=== PATIENT | female | born 1990 ===

== ENCOUNTER 2019-08-23 14:10 | Inpatient (IN) | payer BC ==
[2019-08-23] MEDS ORDERED: Nalbuphine 10 MG/1 ML Vial IVPUSH PRN (14:17)
[2019-08-23] MEDS ORDERED: Lidocaine 1% 50 ML MDV INJECT PRN (14:17)
[2019-08-23] MEDS ORDERED: Tranexamic Acid 1,000 MG in Sodium Chloride 0.9% 100 ML IV PRN (14:17)
[2019-08-23] MEDS ORDERED: Carboprost Tromethamine 250 MCG/1 ML Amp IM PRN (14:17)
[2019-08-23] MEDS ORDERED: Ondansetron 4 MG/2 ML SDV IVPUSH PRN (14:17)
[2019-08-23] MEDS ORDERED: Water For Irrigation,Sterile 1,000 ML Container IRR PRN (14:17)
[2019-08-23] MEDS ORDERED: Misoprostol 200 MCG Tab PO PRN (14:17)
[2019-08-23] MEDS ORDERED: Methylergonovine 0.2 MG/1 ML Amp IM PRN (14:17)
[2019-08-23] MEDS ORDERED: Ampicillin 2 GM in Sodium Chloride 0.9% 100 ML IV ONE (14:17)
[2019-08-23] MEDS ORDERED: Terbutaline 1 MG/ML SDV SUBCUT PRN (14:17)
[2019-08-23] MEDS ORDERED: Sodium Chloride 0.9% 10 ML SDV IV PRN (14:17)
[2019-08-23] MEDS ORDERED: Misoprostol 25 MCG (1/4 of 100 MCG) Tab VAG PRN (14:17)
[2019-08-23] MEDS ORDERED: Butorphanol 1 MG/ML SDV IVPUSH PRN (14:17)
[2019-08-23] MEDS ORDERED: Sodium Chloride 0.9% 2.5 ML Syringe FLUSH PRN (14:17)
[2019-08-23] MEDS ORDERED: Sodium Chloride 0.9% 10 ML Syringe FLUSH PRN (14:17)
[2019-08-23] MEDS ORDERED: Oxytocin/0.9 % Sodium Chloride 30 UNIT/500 ML BAG IV SCH ×2 (14:30)
[2019-08-23] MEDS: Lactated Ringers 1,000 ML IV SCH (15:44)
[2019-08-23 18:03] LABS: BLOOD UREA NITROGEN,BUN 7 mg/dL (7.0-18.0); CARBON DIOXIDE,CO2 22.3 mmol/L (21.0-32.0); CHLORIDE,CL 104 mmol/L (98-107); GLUCOSE RANDOM 87 mg/dL (74-106); POTASSIUM,K 4.2 mmol/L (3.5-5.1); SODIUM,NA 137 mmol/L (136-145)
[2019-08-23] MEDS: Misoprostol 25 MCG (1/4 of 100 MCG) Tab VAG PRN (19:56)
[2019-08-23] MEDS: Ampicillin 1 GM in Sodium Chloride 0.9% 50 ML IV SCH (20:10)
[2019-08-24] MEDS: Ampicillin 1 GM in Sodium Chloride 0.9% 50 ML IV SCH ×3 (00:16→08:17)
[2019-08-24] MEDS: Misoprostol 25 MCG (1/4 of 100 MCG) Tab VAG PRN (00:17)
[2019-08-24] MEDS ORDERED: Ropivacaine 0.2% PF 2 MG/ML 20 ML SDV ONE (07:32)
[2019-08-24] MEDS ORDERED: Ropivacaine HCl/PF 100 ML ONE (07:32)
[2019-08-24] MEDS ORDERED: fentaNYL 100 MCG/2 ML SDV ONE (07:32)
[2019-08-24] MEDS: Lactated Ringers 1,000 ML IV SCH ×2 (08:17→09:48)
--- NOTE | 2019-08-24 08:25 | PCM.PREANE ---
Preanesthetic Assessment - Procedure Proposed Procedure: DAYLIN - Anesthesia/Transfusion/Family Hx Anesthesia History: Prior Anesthesia Without Reaction Family History of Anesthesia Reaction: No Transfusion History: No Prior Transfusion(s) Intubation History: Unknown - Review of Systems General: No Symptoms Pulmonary: No Symptoms Cardiovascular: No Symptoms Gastrointestinal: No Symptoms Neurological: No Symptoms Other: Reports: Anxiety (Painful epidural last time. Tender spot in back ever since.) - Physical Assessment NPO Status Date: 08/24/19 NPO Status Time: 07:30 (Clear liquids) Height: 1.75 m Weight: 114.305 kg ASA Class: 2 Mental Status: Alert & Oriented x3 Airway Class: Mallampati = 1 Dentition: Reports: Normal Dentition Thyro-Mental Finger Breadths: 3 Mouth Opening Finger Breadths: 3 ROM/Head Extension: Full Lungs: Clear to Auscultation Cardiovascular: Regular Rate - Lab Values: Laboratory Last Values WBC 8.90 K/uL (4.0-11.0) 08/23/19 15:34 RBC 4.27 M/uL (4.30-5.90) L 08/23/19 15:34 Hgb 11.3 g/dL (12.0-16.0) L 08/23/19 15:34 Hct 35.4 % (36.0-46.0) L 08/23/19 15:34 MCV 82.9 fL (80.0-98.0) 08/23/19 15:34 MCH 26.5 pg (27.0-32.0) L 08/23/19 15:34 MCHC 31.9 g/dL (31.0-37.0) 08/23/19 15:34 RDW Std Deviation 41.5 fl (28.0-62.0) 08/23/19 15:34 RDW Coeff of Zeyad 14 % (11.0-15.0) 08/23/19 15:34 Plt Count 208 K/uL (150-400) 08/23/19 15:34 MPV 11.20 fL (7.40-12.00) 08/23/19 15:34 Nucleated RBC % 0.0 /100WBC 08/23/19 15:34 Nucleated RBCs # 0 K/uL 08/23/19 15:34 Sodium 137 mmol/L (136-145) 08/23/19 15:34 Potassium 4.2 mmol/L (3.5-5.1) 08/23/19 15:34 Chloride 104 mmol/L (98-107) 08/23/19 15:34 Carbon Dioxide 22.3 mmol/L (21.0-32.0) 08/23/19 15:34 BUN 7 mg/dL (7.0-18.0) 08/23/19 15:34 Creatinine 0.6 mg/dL (0.6-1.0) 08/23/19 15:34 Est Cr Clr Drug Dosing 145.88 mL/min 08/23/19 15:34 Estimated GFR (MDRD) > 60.0 ml/min 08/23/19 15:34 Glucose 87 mg/dL (74-106) 08/23/19 15:34 Uric Acid 3.9 mg/dL (2.6-7.2) 08/23/19 15:34 Calcium 8.8 mg/dL (8.5-10.1) 08/23/19 15:34 Total Bilirubin 0.7 mg/dL (0.2-1.0) 08/23/19 15:34 AST 19 IU/L (15-37) 08/23/19 15:34 ALT 17 IU/L (14-63) 08/23/19 15:34 Alkaline Phosphatase 178 U/L (46-116) H 08/23/19 15:34 Total Protein 6.7 g/dL (6.4-8.2) 08/23/19 15:34 Albumin 2.7 g/dL (3.4-5.0) L 08/23/19 15:34 Globulin 4.0 g/dL (2.6-4.0) 08/23/19 15:34 Albumin/Globulin Ratio 0.7 (0.9-1.6) L 08/23/19 15:34 Ur Random Creatinine 79.3 mg/dL 08/23/19 18:12 U Random Total Protein 16.5 mg/dL (<11.9) H 08/23/19 18:12 Protein/Creatinin Ratio 0.2 08/23/19 18:12 Blood Type A POSITIVE 08/23/19 15:34 Antibody Screen NEGATIVE 08/23/19 15:34 - Allergies Allergies/Adverse Reactions: Allergies Allergy/AdvReac Type Severity Reaction Status Date / Time No Known Allergies Allergy Verified 08/23/19 15:16 - Blood Blood Available: No - Anesthesia Plan Pre-Op Medication Ordered: None - Acknowledgements Anesthesia Type Planned: Epidural Pt an Appropriate Candidate for the Planned Anesthesia: Yes Alternatives and Risks of Anesthesia Discussed w Pt/Guardian: Yes Pt/Guardian Understands and Agrees with Anesthesia Plan: Yes Additional Comments: Discussed. ? answered. Permit signed. PreAnesthesia Questionnaire [employer] History: Reports: - Infectious Disease History Infectious Disease History: Reports: Chicken Pox - Past Surgical History HEENT Surgical History: Reports: Oral Surgery Musculoskeletal Surgical History: Reports: Other (See Below) Other Musculoskeletal Surgeries/Procedures:: Left ACL reconstruction - SUBSTANCE USE Smoking Status *Q: Never Smoker Second Hand Smoke Exposure: No Recreational Drug Use History: No - CURRENT (IN HOUSE) MEDS Current Meds: Current Medications Butorphanol Tartrate (Stadol) 1 mg IVPUSH Q1H PRN PRN Reason: Pain Last Admin: 08/24/19 04:28 Dose: 1 mg Carboprost Tromethamine (Hemabate Ds) 250 mcg IM ASDIRECTED PRN PRN Reason: Post Hemorrhage Lactated Ringer's (Ringers, Lactated) 1,000 mls @ 150 mls/hr IV ASDIRECTED ENDER Last Admin: 08/24/19 08:17 Dose: 500 mls/hr Oxytocin/Sodium Chloride (Oxytocin 30 Unit/500 Ml-Ns) 30 unit in 500 mls @ 999 mls/hr IV TITRATE ENDER Oxytocin/Sodium Chloride (Oxytocin 30 Unit/500 Ml-Ns) 30 unit in 500 mls @ 2 mls/hr IV TITRATE ENDER; Protocol Last Titration: 08/24/19 07:47 Dose: 4 munits/min, 4 mls/hr Tranexamic Acid 1,000 mg/ (Sodium Chloride) 110 mls @ 660 mls/hr IV ONETIME PRN PRN Reason: Bleeding Ampicillin Sodium 1 gm/ Sodium (Chloride) 50 mls @ 100 mls/hr IV Q4H ENDER Last Admin: 08/24/19 08:17 Dose: 100 mls/hr Lidocaine HCl (Xylocaine 1%) 50 ml INJECT ONETIME PRN PRN Reason: Laceration repair Methylergonovine Maleate (Methergine) 0.2 mg IM ASDIRECTED PRN PRN Reason: Post Hemorrhage Misoprostol (Cytotec) 200 mcg PO ONETIME PRN PRN Reason: Post Hemorrhage Misoprostol (Cytotec) 25 mcg VAG ONETIME PRN PRN Reason: Cervical Ripening Last Admin: 08/23/19 15:50 Dose: 25 mcg Misoprostol (Cytotec) 25 mcg VAG Q4H PRN PRN Reason: Cervical Ripening Last Admin: 08/24/19 00:17 Dose: 25 mcg Nalbuphine HCl (Nubain) 10 mg IVPUSH Q1H PRN PRN Reason: Pain (severe 7-10) Ondansetron HCl (Zofran) 4 mg IVPUSH Q4H PRN PRN Reason: Nausea/Vomiting Sodium Chloride (Saline Flush) 10 ml FLUSH ASDIRECTED PRN PRN Reason: Keep Vein Open Sodium Chloride (Saline Flush) 2.5 ml FLUSH ASDIRECTED PRN PRN Reason: Keep Vein Open Sodium Chloride (Normal Saline) 10 ml IV ASDIRECTED PRN PRN Reason: IV Use Sterile Water (Sterile Water For Irrigation) 1,000 ml IRR ASDIRECTED PRN PRN Reason: delivery Terbutaline Sulfate (Brethine) 0.25 mg SUBCUT ASDIRECTED PRN PRN Reason: Tacysystole Discontinued Medications Fentanyl (Sublimaze) Confirm Administered Dose 100 mcg .ROUTE .STK-MED ONE Stop: 08/24/19 07:33 Ampicillin Sodium 2 gm/ Sodium (Chloride) 100 mls @ 200 mls/hr IV ONETIME ONE Stop: 08/23/19 14:46 Last Admin: 08/23/19 15:45 Dose: 200 mls/hr Ropivacaine (Naropin 0.2%) Confirm Administered Dose 100 mls @ as directed .ROUTE .STK-MED ONE Stop: 08/24/19 07:33 Ropivacaine (Naropin 0.2%) Confirm Administered Dose 20 ml .ROUTE .STK-MED ONE Stop: 08/24/19 07:33
[2019-08-24] MEDS ORDERED: Sodium Chloride 0.9% 20 ML ONE (08:38)
[2019-08-24] MEDS ORDERED: ePHEDrine 50 MG/ML SDV ONE (08:38)
[2019-08-24] MEDS ORDERED: Benzocaine/Menthol 20%-0.5% Spray 78 GM Cannister TOP PRN (12:32)
[2019-08-24] MEDS ORDERED: Bisacodyl 10 MG Supp RECTAL PRN (12:32)
[2019-08-24] MEDS ORDERED: Lanolin 100% Cream 7 GM Tube TOP PRN (12:32)
[2019-08-24] MEDS ORDERED: Docusate Sodium 100 MG Cap PO PRN (12:32)
[2019-08-24] MEDS ORDERED: Ibuprofen 400 MG Tab PO PRN (12:32)
[2019-08-24] MEDS ORDERED: Aluminum Hydroxide/Magnesium Hydroxide/Simethicone Susp 30 ML Cup PO PRN (12:32)
[2019-08-24] MEDS ORDERED: Witch Hazel Medicated Pads 40/Jar TOP PRN (12:32)
[2019-08-24] MEDS ORDERED: Acetaminophen 500 MG Tab PO PRN ×2 (12:32)
[2019-08-24] MEDS ORDERED: oxyCODONE 5 MG Tab PO PRN (12:32)
--- NOTE | 2019-08-24 12:38 | PCM.OPNOTE ---
- General Post-Op/Procedure Note Date of Surgery/Procedure: 08/24/19 Operative Procedure(s): /IP Findings: Viable male APGARs 8, 9 weight pending. Spontaneous delivery intact placenta with 3V cord Pre Op Diagnosis: 41/1 week IUP. Induction for past due PG Post-Op Diagnosis: Same Anesthesia Technique: Epidural Primary Surgeon: Karen Romano EBL in mLs: 200 Complications: none known Condition: Good Free Text/Narrative:: Dictation [id number]
--- NOTE | 2019-08-24 16:14 | OR ---
SURGEON: Karen Romano M.D. DATE OF PROCEDURE: 08/24/2019 PREOPERATIVE DIAGNOSES: 1. A 41-1/7 weeks' intrauterine . 2. Induction of labor for past due . 3. Group B beta strep positive. POSTOPERATIVE DIAGNOSES: 1. A 41-1/7 weeks' intrauterine . 2. Induction of labor for past due . 3. Group B beta strep positive. PROCEDURE: Spontaneous vaginal delivery, intact perineum. PRIMARY SURGEON: Karen Romano MD ANESTHESIA: Epidural. ESTIMATED BLOOD LOSS: 200 mL. COMPLICATIONS: None known. FINDINGS: Viable male. score of 8 at one minute and 9 at five minutes. Weight is pending. Spontaneous delivery, intact placenta, 3-vessel cord. DISPOSITION: Infant to nursery, mom in LDRP. PROCEDURE DETAILS: Josef is a 29-year-old, G2, P1, at 41 weeks' gestational age, who presented on 08/23/2019 for scheduled induction of labor for past due . She received four doses of Cytotec. Category of heart tone in the 140s and then proceeded to Pitocin induction. She underwent amniotomy on the director of women's services of 08/24/2019 with clear fluid returned. IUPC was placed. The patient continued to progress and became more uncomfortable. Was found to be 3 cm and underwent a regional anesthesia in the form of epidural. I assumed care at 8 a.m. Shortly after 10 a.m., the patient was found to be complete, 100% effaced, minus 1 station. Therefore, continued to labor until +1 or +2 station and then began pushing efforts. The patient pushed to a +2 station. I was called for delivery. Upon my arrival, the patient was placed in modified dorsal lithotomy position, prepped and draped in usual aseptic manner. The patient was found to be right OT presentation, therefore, head was rotated to OA presentation. Continued with pushing efforts. heart tones remained in the 140s and was able to deliver 's head followed by anterior shoulder, posterior shoulder, and remainder of the body without difficulty. The infant's oropharynx and nares were bulb suctioned. Infant was handed off to his mother with attending nursing staff at the side. Cord arterial, cord venous, cord blood sampling was obtained after the cord was clamped x2 and cut. Light pressure was applied while the placenta was delivered spontaneously intact. Vigorous fundal uterine massage was then applied while 30 units of Pitocin was delivered in 500 mL of fluid. Upon inspection of cervix, vaginal sidewall, and perineum, these were found to be intact. Uterus remained firm. Hemostasis evident. Sponge count and instrument count were correct. The patient remained in LDRP, to nursery. JALEN / ADRIANO /[id number]
[2019-08-24] MEDS: Ibuprofen 800 MG Tab PO PRN (20:03)
[2019-08-25] MEDS: Ibuprofen 800 MG Tab PO PRN (08:10)
--- NOTE | 2019-08-25 11:07 | PCM.PNPP ---
- General Info Date of Service: 08/25/19 Functional Status: Reports: Pain Controlled, Tolerating Diet, Ambulating, Urinating - Review of Systems General: Denies: Fever, Weakness Pulmonary: Denies: Shortness of Breath Cardiovascular: Denies: Chest Pain, Palpitations, Lightheadedness Gastrointestinal: Denies: Abdominal Pain Genitourinary: Reports: No Symptoms Musculoskeletal: Reports: No Symptoms Skin: Reports: No Symptoms Neurological: Reports: No Symptoms Psychiatric: Reports: No Symptoms - General Info Date of Service: 08/25/19 - Patient Data Vital Signs - Most Recent: Last Vital Signs Temp 36.6 C 08/25/19 07:00 Pulse 60 08/25/19 07:00 Resp 18 08/25/19 07:00 BP 121/78 08/25/19 07:00 Pulse Ox 98 08/25/19 07:00 Weight - Most Recent: 114.305 kg Lab Results - Last 24 Hours: Laboratory Results - last 24 hr 08/24/19 08/25/19 Range/Units 12:34 06:25 Hgb 10.4 L (12.0-16.0) g/dL Hct 33.5 L (36.0-46.0) % Cord ABG pH 7.213 (7.18-7.38) Cord ABG Base Excess -6 (-10--2) Cord VBG pH 7.277 (7.25-7.45) Cord VBG Base Excess -7 (-10--2) Med Orders - Current: Current Medications Acetaminophen (Tylenol Extra Strength) 500 mg PO Q4H PRN PRN Reason: Pain Acetaminophen (Tylenol Extra Strength) 1,000 mg PO Q4H PRN PRN Reason: Pain Last Admin: 08/24/19 18:18 Dose: 1,000 mg Al Hydroxide/Mg Hydroxide (Mag-Al Plus) 30 ml PO Q8H PRN PRN Reason: Heartburn Benzocaine/Menthol (Dermoplast Pain Relief 20%-0.5% Theodore) 78 gm TOP ASDIRECTED PRN PRN Reason: Perineal Comfort Measure Bisacodyl (Dulcolax) 10 mg RECTAL ONETIME PRN PRN Reason: Constipation Butorphanol Tartrate (Stadol) 1 mg IVPUSH Q1H PRN PRN Reason: Pain Last Admin: 08/24/19 04:28 Dose: 1 mg Carboprost Tromethamine (Hemabate Ds) 250 mcg IM ASDIRECTED PRN PRN Reason: Post Hemorrhage Docusate Sodium (Colace) 100 mg PO BID PRN PRN Reason: Constipation Emollient Ointment (Lansinoh Hpa) 0 gm TOP ASDIRECTED PRN PRN Reason: Sore Nipples Lactated Ringer's (Ringers, Lactated) 1,000 mls @ 150 mls/hr IV ASDIRECTED ENDER Last Admin: 08/24/19 09:48 Dose: 150 mls/hr Oxytocin/Sodium Chloride (Oxytocin 30 Unit/500 Ml-Ns) 30 unit in 500 mls @ 999 mls/hr IV TITRATE ENDER Oxytocin/Sodium Chloride (Oxytocin 30 Unit/500 Ml-Ns) 30 unit in 500 mls @ 2 mls/hr IV TITRATE ENDER; Protocol Last Titration: 08/24/19 12:10 Dose: 999 munits/min, 999 mls/hr Tranexamic Acid 1,000 mg/ (Sodium Chloride) 110 mls @ 660 mls/hr IV ONETIME PRN PRN Reason: Bleeding Ibuprofen (Motrin) 400 mg PO Q4H PRN PRN Reason: Pain Ibuprofen (Motrin) 800 mg PO Q6H PRN PRN Reason: Pain Last Admin: 08/25/19 08:10 Dose: 800 mg Methylergonovine Maleate (Methergine) 0.2 mg IM ASDIRECTED PRN PRN Reason: Post Hemorrhage Nalbuphine HCl (Nubain) 10 mg IVPUSH Q1H PRN PRN Reason: Pain (severe 7-10) Ondansetron HCl (Zofran) 4 mg IVPUSH Q4H PRN PRN Reason: Nausea/Vomiting Oxycodone HCl (Oxycodone) 5 mg PO Q2H PRN PRN Reason: Pain Sodium Chloride (Saline Flush) 10 ml FLUSH ASDIRECTED PRN PRN Reason: Keep Vein Open Sodium Chloride (Saline Flush) 2.5 ml FLUSH ASDIRECTED PRN PRN Reason: Keep Vein Open Sodium Chloride (Normal Saline) 10 ml IV ASDIRECTED PRN PRN Reason: IV Use Sterile Water (Sterile Water For Irrigation) 1,000 ml IRR ASDIRECTED PRN PRN Reason: delivery Last Admin: 08/24/19 12:33 Dose: 1,000 ml [place] Leadia (Tucks) 1 pad TOP ASDIRECTED PRN PRN Reason: comfort care Discontinued Medications Ephedrine Sulfate (Ephedrine Sulfate) Confirm Administered Dose 100 mg .ROUTE .STK-MED ONE Stop: 08/24/19 08:39 Fentanyl (Sublimaze) Confirm Administered Dose 100 mcg .ROUTE .STK-MED ONE Stop: 08/24/19 07:33 Last Admin: 08/25/19 08:49 Dose: Not Given Ampicillin Sodium 2 gm/ Sodium (Chloride) 100 mls @ 200 mls/hr IV ONETIME ONE Stop: 08/23/19 14:46 Last Admin: 08/23/19 15:45 Dose: 200 mls/hr Ampicillin Sodium 1 gm/ Sodium (Chloride) 50 mls @ 100 mls/hr IV Q4H ENDER Last Admin: 08/24/19 08:17 Dose: 100 mls/hr Ropivacaine (Naropin 0.2%) Confirm Administered Dose 100 mls @ as directed .ROUTE .STK-MED ONE Stop: 08/24/19 07:33 Last Admin: 08/25/19 08:49 Dose: Not Given Sodium Chloride (Normal Saline) Confirm Administered Dose 20 mls @ as directed .ROUTE .STK-MED ONE Stop: 08/24/19 08:39 Lidocaine HCl (Xylocaine 1%) 50 ml INJECT ONETIME PRN PRN Reason: Laceration repair Misoprostol (Cytotec) 200 mcg PO ONETIME PRN PRN Reason: Post Hemorrhage Misoprostol (Cytotec) 25 mcg VAG ONETIME PRN PRN Reason: Cervical Ripening Last Admin: 08/23/19 15:50 Dose: 25 mcg Misoprostol (Cytotec) 25 mcg VAG Q4H PRN PRN Reason: Cervical Ripening Last Admin: 08/24/19 00:17 Dose: 25 mcg Ropivacaine (Naropin 0.2%) Confirm Administered Dose 20 ml .ROUTE .STK-MED ONE Stop: 08/24/19 07:33 Last Admin: 08/25/19 08:50 Dose: Not Given Terbutaline Sulfate (Brethine) 0.25 mg SUBCUT ASDIRECTED PRN PRN Reason: Tacysystole - Infant Interaction Support Person: Significant Other - Recovery Exam Fundal Tone: Firm Fundal Level: 1 Fingerbreadths Below Umbilicus Fundal Placement: Midline Lochia Amount: Scant Lochia Color: Rubra/Red Perineum Description: Intact, Minimal Bruising/Swelling Episiotomy/Laceration: Approximated Bladder Status: Voiding Urinary Elimination: Voided - Exam General: Alert, Oriented Lungs: Rub Cardiovascular: Regular Rate, Regular Rhythm GI/Abdominal Exam: Normal Bowel Sounds, Soft, Non-Tender Extremities: Pedal Edema (1+). No: Magdi's Sign Skin: Warm, Dry, Intact Neurological: No New Focal Deficit Psy/Mental Status: Alert, Normal Affect, Normal Mood - Problem List & Annotations (1) Vaginal delivery SNOMED Code(s): 759058764 Code(s): O80 - ENCOUNTER FOR FULL-TERM UNCOMPLICATED DELIVERY Status: Acute Current Visit: Yes - Problem List Review Problem List Initiated/Reviewed/Updated: Yes - My Orders Last 24 Hours: My Active Orders 08/24/19 12:32 Patient Status [ADT] Routine May Shower [RC] ASDIRECTED Notify Provider Vital Signs [RC] ASDIRECTED Up ad Kriss [RC] ASDIRECTED Vital Signs [RC] PER UNIT ROUTINE Acetaminophen [Tylenol Extra Strength] 1,000 mg PO Q4H PRN Acetaminophen [Tylenol Extra Strength] 500 mg PO Q4H PRN Alum Hydrox/Mag Hydrox/Simeth [Mag-Al Plus] 30 ml PO Q8H PRN Benzocaine/Menthol [Dermoplast Pain Relief 20%-0.5% Theodore] 78 gm TOP ASDIRECTED PRN Docusate Sodium [Colace] 100 mg PO BID PRN Ibuprofen [Motrin] 400 mg PO Q4H PRN Ibuprofen [Motrin] 800 mg PO Q6H PRN Lanolin [Lansinoh HPA] See Dose Instructions TOP ASDIRECTED PRN bisacodyL [Dulcolax] 10 mg RECTAL ONETIME PRN oxyCODONE 5 mg PO Q2H PRN witch Eladia [Tucks] 1 pad TOP ASDIRECTED PRN Assess Lochia [WOMSER] Per Unit Routine Assess Uterine Involution [WOMSER] Per Unit Routine Peripheral IV Discontinue [OM.PC] Routine 08/24/19 12:33 Ice Therapy [OM.PC] Per Unit Routine Perineal Care [OM.PC] Per Unit Routine Sitz Bath [OM.PC] Per Unit Routine 08/24/19 Lunch Regular Diet [DIET] 08/25/19 11:05 Ready for Discharge [RC] PER UNIT ROUTINE - Assessment Assessment:: PPD 1 status post - Plan Plan:: VS and labs are reassuring. Patient doing well overall and would like to go home today. Discharge instructions reviewed. Discharge to home today and follow up at [facility] 6 weeks.
--- NOTE | 2019-08-25 11:51 | PCM48HPAN ---
Post Anesthesia Note - EVALUATION WITHIN 48HRS OF ANESTHETIC Vital Signs in Normal Range: Yes Patient Participated in Evaluation: Yes Respiratory Function Stable: Yes Airway Patent: Yes Cardiovascular Function Stable: Yes Hydration Status Stable: Yes Pain Control Satisfactory: Yes Nausea and Vomiting Control Satisfactory: Yes Mental Status Recovered: Yes Vital Signs: Last Vital Signs Temp 36.6 C 08/25/19 07:00 Pulse 60 08/25/19 07:00 Resp 18 08/25/19 07:00 BP 121/78 08/25/19 07:00 Pulse Ox 98 08/25/19 07:00
--- NOTE | 2019-08-26 10:56 | PCM.SN.2 ---
- Free Text/Narrative Note: Baby's bili levels were elevated, so needed to go under bili lights. Patient is feeling well with no concerns. Awaiting bili levels today and if improve, will go home. VS remain stable. Continue PP cares and resume discharge instructions/ plan later today.
== END 2019-08-26 19:47 | disposition home or self-care (01) | DRG 560 ==
LOC: MW.OB 14:10 → OBSVTOIN 08-24 12:32 → MW.OB 08-24 15:22
PROVIDERS: ADMIT Obstetrics & Gynecology; ATTEND Obstetrics & Gynecology
PROC: 10E0XZZ Delivery of Products of Conception, External Approach (ICD-10-PCS; principal; 2019-08-24)
PROC: 10907ZC Drainage of Amniotic Fluid, Therapeutic from Products of Conception, Via Natural or Artificial Opening (ICD-10-PCS; 2019-08-24)
PROC: 10H07YZ Insertion of Other Device into Products of Conception, Via Natural or Artificial Opening (ICD-10-PCS; 2019-08-24)
PROC: 3E0P7VZ Introduction of Hormone into Female Reproductive, Via Natural or Artificial Opening (ICD-10-PCS; 2019-08-24)
PROC: 3E0R3BZ Introduction of Anesthetic Agent into Spinal Canal, Percutaneous Approach (ICD-10-PCS; 2019-08-24)
DX: O48.0 Post-term pregnancy (principal); O13.4 Gestational [pregnancy-induced] hypertension without significant proteinuria, complicating childbirth; Z3A.41 41 weeks gestation of pregnancy; Z37.0 Single live birth
CPT/HCPCS: 36415; 51702; 59025; 59409; 80053; 82570; 82803; 84156; 84550; 85014; 85018; 85027; 86592; 86593; 86850; 86900; 86901; A9270-GY; J0290; J0595; J2590; J2795; J3010; J7050; J7120